=== PATIENT | male | born 1960 | race Caucasian/White ===

== ENCOUNTER 2017-08-07 10:54 | Observation (INO) | payer BC ==
[~2017-08-07] VITALS: Ht 182.9 cm; Wt 112.5 kg
--- NOTE | ~2017-08-07 | HEMODYNAMI ---
PATIENT:SHERIN GREWAL MEDICAL RECORD: [id number] : 60 [id number] ADMISSION DATE: 08/07/17 Generatedon:08/08/20178:47 Patient name: SHERIN GREWAL Patient #: [id number] SSN: : 1960 Date of study: 08/08/2017 Page: Of Hemodynamic Procedure Report Patient Data Patient Demographics Procedure consent was obtained First Name: SHERIN Gender: Male Last Name: URI : 1960 Middle Initial: JORGE Age: 56 year(s) Patient #: [id number] Race: Unknown Additional ID: [id number] Contact details [address]: [address] [place] [address] State: [place] City: [place] Zip code: [address] Past Medical History Allergies Allergen Reaction Date Comments Reported Other allergy 08/08/2017 PCN Admission Admission Data Admission Date: 08/07/2017 Admission Time: 13:10 [facility] Results Lab Result Date: 08/07/2017 Lab Result Time: 11:24 Biochemistry Name Units Result Min Max BUN mg/dl 14 --(--*-)-- 7 18 Creatinine mg/dl 1.1 --(--*-)-- 0.6 1.3 CBC Name Units Result Min Max Hematocrit % 44.2 --(*---)-- 42 54 Hemoglobin g/dl 15.6 --(--*-)-- 13.5 17.5 Procedure Procedure Types Cath Procedure Diagnostic Procedure LHC LH w/Coronaries Miscellaneous Procedures Moderate Sedation up to 30 minutes Procedure Description Procedure Date Procedure Date: 08/08/2017 Procedure Start Time: 8:30 Procedure End Time: 8:45 Procedure Staff Name Function Walker Carcamo MD Performing Physician Shannon Brandon RT Monitor Gris Velasquez RT Scrub Mery Cho RN Nurse Laurence Phoenix RN Nurse Procedure Data Cath Procedure Fluoroscopy Diagnostic fluoroscopy Total fluoroscopy Time: 1.5 time: 1.5 min min Diagnostic fluoroscopy Total fluoroscopy dose: 497 dose: 497 mGy mGy Contrast Material Contrast Material Type Amount (ml) Isovue 300 66 Entry Location Entry Primary Successful Side Size Upsize Upsize Entry Closure Succes sful Closure Location (Fr) 1 (Fr) 2 (Fr) Remarks Device Remarks Femoral Right 5 Fr Exoseal artery Estimated blood loss: 5 ml Diagnostic catheters Device Type Used For End Catheter Placement MULTIPACK JL 4.0 5Fr Left Coronary catheter Angiography MULTIPACK 3DRC 5Fr Right Coronary catheter Angiography MULTIPACK Pigtail 5 Fr LV Angiography catheter Procedure Complications No complications Procedure Medications Medication Administration Route Dosage 0.9% NaCl I.V. 100 ml/hr Lidocaine 2% added to field 20 Heparin Flush Bag added to field 2 bags (1000units/500ml NS) Oxygen NC 2 l/min Fentanyl I.V. 50 mcg Versed I.V. 1 mg Versed I.V. 1 mg Fentanyl I.V. 50 mcg Plavix P.O. 75 mg Hemodynamics Rest Heart Rate: 74 (bpm) Pressure Samples Time Site Value (mmHg) Purpose Heart Use Rate(bpm) 8:38 LV 115/-2,18 Snapshot 68 8:39 AO 107/61(81) Pullback 71 8:39 LV 118/-7,6 Pullback 71 Gradients Valve Time Site 1 Site 2 Mean SEP/DFP Peak To Heart Use (mmHg) (sec/min) Peak Rate (mmHg) (bpm) Aortic 8:39 LV AO 24 6 11 71 118/-7,6 107/61(81) Calculations Valve P-P Mean Valve Index Valve Source Name Gradient Area Flow (cm2) Aortic 11 24 11 24 Snapshots Pre Cath Intra NCS Post Cath Vital Signs Time Heart Resp SPO2 etCO2 NIBP Rhythm Pain Sedation Rate (ipm) (%) (mmHg) (mmHg) Status Level (bpm) 8:04:15 56 14 97 0 119/76(94) NSR 0 (11) 10(A) , No pain 8:08:27 58 14 97 38.1 117/75(88) NSR 0 (11) 10(A) , No pain 8:12:37 59 14 98 38.1 114/74(89) NSR 0 (11) 10(A) , No pain 8:16:51 67 14 98 42.6 119/66(89) NSR 0 (11) 10(A) , No pain 8:21:05 56 14 98 44.9 120/72(82) NSR 0 (11) 10(A) , No pain 8:25:17 57 19 97 41.1 116/68(84) NSR 0 (11) 10(A) , No pain 8:29:33 61 19 97 45.7 119/62(93) NSR 0 (11) 9(A) , No pain 8:33:45 65 16 96 44.2 119/65(97) NSR 0 (11) 9(A) , No pain 8:37:57 67 16 94 33.7 118/70(92) NSR 0 (11) 9(A) , No pain 8:42:11 68 17 95 8.9 124/66(99) NSR 0 (11) 10(A) , No pain 8:46:18 65 18 95 47.9 116/70(90) NSR 0 (11) 10(A) , No pain Medications Time Medication Route Dose Verified Delivered Reason Notes Effectiveness by by 8:03:33 0.9% NaCl I.V. 100ml/hr Walker Laurence used for Carlos Alberto Phoenix RN procedure 8:03:48 Lidocaine 2% added 20ml Walker Walker for local to vial Carlos Alberto Carcamo MD anesthetic field 8:03:58 Heparin Flush added 2 bags Walker Walker used for Bag to Carlos Alberto Carcamo MD procedure (1000units/500ml field NS) 8:04:11 Oxygen NC 2 l/min Walker Laurence Per Carlos Alberto Phoenix RN physician 8:23:26 Fentanyl I.V. 50 mcg Walker Laurence for sedation Carlos Alberto Phoenix RN 8:23:37 Versed I.V. 1 mg Walker Laurence for sedation Carlos Alberto Phoenix RN 8:29:52 Versed I.V. 1 mg Walker Laurence for sedation Carlos Alberto Phoenix RN 8:29:59 Plavix P.O. 75 mg Walker Laurence for per Carlos Alberto Phoenix RN antiplatelet carlos alberto therapy 8:29:59 Fentanyl I.V. 50 mcg Walker Laurence for sedation Carlos Alberto Phoenix RN Procedure Log Time Note 7:46:54 Diagnostic Cath Status : Elective 7:47:19 Mery Cho RN sent for patient. Start room use. 7:47:20 Time tracking: Regular hours 7:47:25 Plan of Care:Hemodynamics will remain stable., Cardiac rhythm will remain stable., Comfort level will be maintained., Respiratory function will remain adequate., Patient/ family verbilizes understanding of procedure., Procedure tolerated without complication., Recovers from procedure without complications.. 7:55:33 Patient received from Med II to CCL 2 Alert and oriented. Tansferred to table in Supine position. 7:55:34 Warm blankets applied, and shankar hugger turned on for patient comfort. 7:55:34 Correct patient and procedure confirmed by team. 7:55:36 Signed procedure consent form obtained from patient. 7:55:37 ECG and BP/O2 sat monitors applied to patient. 7:55:58 H&P Date Dictated: 08/07/2017 Within 30 days and on chart.. 7:58:18 Lab Result : BUN 14 mg/dl 7:58:18 Lab Result : Hematocrit 44.2 % 7:58:18 Lab Result : Hemoglobin 15.6 g/dl 7:58:18 Lab Result : Creatinine 1.1 mg/dl 7:59:19 Previous problem with sedation/anesthesia? No ? 7:59:20 Snore? Yes 7:59:22 Sleep apnea? No 7:59:25 Deviated septum? No 7:59:25 Opens mouth fully? Yes 7:59:27 Sticks out tongue? Yes 7:59:30 Airway obstruction? No ? 7:59:36 Dentures? Yes Partial in tight 7:59:40 Pre-procedure instructions explained to patient. 7:59:41 Pre-op teaching completed and patient verbalized understanding. 7:59:42 Family in waiting room. 7:59:43 Patient NPO since Midnight. 7:59:50 Patient allergic to Other allergyPCN 7:59:53 Is the patient allergic to Iodine/contrast media? No. 7:59:53 Is patient on blood thinner?Yes 7:59:56 ACC The patient was administered the following blood thiners within the last 24 hours: ACCPlavix 7:59:57 Patient diabetic? No. 8:00:03 Pre procedure: right dorsailis pedis pulse 2+ Normal; easily identifiable; not easily obliterated 8:00:05 Patient pain scale 0/10 ?. 8:00:27 IV patent on arrival in right hand with 0.9% NaCl at O. 8:00:31 Lab results completed and on chart. 8:00:34 Right groin area was prepped with chlora-prep and draped in sterile fashion 8:00:34 Alarms reviewed by R. N. 8:00:35 Sharps counted by scrub and verified by R.N. 8:00:37 Use device set Femoral Dx 8:00:40 Tegaderm 4 x 4 ([id number]) opened to sterile field. 8:00:42 ACIST Syringe (05945) opened to sterile field. 8:00:42 Bag Decanter (2002S) opened to sterile field. 8:00:43 Medline Cath Pack ([id number]) opened to sterile field. 8:00:43 Terumo 5Fr [place] Sheath opened to sterile field. 8:00:44 St Terence 260cm J .035 wire opened to sterile field. 8:00:47 ACIST Hand Control (48221) opened to sterile field. 8:00:48 ACIST Manifold (02742) opened to sterile field. 8:00:51 PERCUTANEOUS ENTRY 19GA needle opened to sterile field. 8:00:52 DIAGNOSTIC Multipack 5Fr catheter set (UB4968) opened to sterile field. 8:03:13 Vital chart was started 8:03:33 0.9% NaCl 100ml/hr I.V. was administered by Laurence Phoenix RN; used for procedure; 8:03:48 Lidocaine 2% 20ml vial added to field was administered by Walker Carcamo MD; for local anesthetic; 8:03:58 Heparin Flush Bag (1000units/500ml NS) 2 bags added to field was administered by Walker Carcamo MD; used for procedure; 8:04:11 Oxygen 2 l/min NC was administered by Laurence Phoenix RN; Per physician; 8:21:06 Zero performed for pressure channel P1 8:22:49 Physician arrived 8::49 --------ALL STOP TIME OUT------ 8:22:50 Final Timeout: patient, procedure, and site verified with staff and physician. All members of the team are in agreement. 8:22:52 Right groin site verified by team. 8:22:56 Physical assessment completed. ASA score P 2 - A patient with mild systemic disease as per Walker Carcamo MD. 8::59 Sedation plan: IV Moderate Sedation Medication:Versed, Fentanyl 8:23:26 Fentanyl 50 mcg I.V. was administered by Laurence Phoenix RN; for sedation; 8:23:37 Versed 1 mg I.V. was administered by Laurence Phoenix RN; for sedation; 8::52 Versed 1 mg I.V. was administered by Laurence Phoenix RN; for sedation; 8::59 Plavix 75 mg P.O. was administered by Laurence Phoenix RN; for antiplatelet therapy; per carlos alberto 8::59 Fentanyl 50 mcg I.V. was administered by Laurence Phoenix RN; for sedation; 8::28 Procedure started. 8:30:28 Full Disclosure recording started 8:30:36 Local anesthetic to right femoral artery with Lidocaine 2% by Walker Carcamo MD.INITIAL ACCESS ONLY 8:32:21 A 5 Fr sheath was inserted into the Right Femoral artery 8:32:33 A MULTIPACK JL 4.0 5Fr catheter was advanced over the wire and used for Left Coronary Angiography. 8:34:27 LCA angiography performed. 8:34:30 Injector settings: Ml/sec: 3, Volume: 6, 8:35:49 Catheter removed. 8:35:55 A MULTIPACK 3DRC 5Fr catheter was advanced over the wire and used for Right Coronary Angiography. 8:36:48 Baseline sample Acquired. 8:37:26 RCA angiography performed. 8:37:29 Injector settings: Ml/sec: 3, Volume: 6, 8:37:53 A MULTIPACK Pigtail 5 Fr catheter was advanced over the wire and used for LV Angiography. 8:39:05 LV hemodynamics recorded. 8:39:07 LV gram done using PATRICIA 8:39:10 Injector settings: Ml/sec: 5, Volume: 15, 8:39:17 EF : 55 % 8:39:34 Catheter removed. 8:42:37 EXOSEAL 5Fr (EX500) opened to sterile field. 8:42:56 Sheath removed intact; hemostasis achieved with Exoseal to the Right Femoral artery. 8:42:58 Procedure ended.(Physican Out) 8:44:46 Fluoroscopy time 01.50 minutes. 8:44:50 Fluoroscopy dose: 497 mGy 8:44:50 Flurop Dose total: 497 8:44:55 Contrast amount:Isovue 300 66ml. 8:44:56 Sharps counted by scrub and verified by R.N. 8:44:57 Insertion/operative site no bleeding no hematoma. 8:45:00 Post-op/insertion site Right Femoral artery dressed using a 4 x 4 and Tegaderm. 8:45:02 Post right femoral artery:stable 8:45:04 Post Procedure Pulses reassessed and unchanged 8:45:07 Post procedure rhythm: unchanged. 8:45:10 Estimated blood loss: 5 ml 8:45:11 Post procedure instruction explained to patient.Patient verbalizes understanding. 8:45:11 Patient needs reinforcement of post procedure teaching. 8:45:25 Procedure type changed to Cath procedure, Diagnostic procedure, LHC, LHC w/Coronaries, Miscellaneous Procedures, Moderate Sedation up to 30 minutes 8:45:27 Procedure and supply charges have been captured, reviewed, submitted and are correct. 8:45:32 Procedure Complication : No complications 8:45:34 Vital chart was stopped 8:45:34 See physician's report for complete and final results. 8:45:41 Report given to [facility] II. 8:45:44 Patient transfered to Med II with Stretcher. 8:45:46 Procedure ended. 8:45:46 Full Disclosure recording stopped 8:45:54 End room use (Document Last) Device Usage Item Name Manufacture Quantity Catalog Hospital Part Current Minimal Lot# / Number Charge Number Stock Stock Serial# Code Tegaderm 4 x 3M 1 1626W [id number] 5 4 (1626W) ACIST Acist 1 59585 533639 625655 611176 20 Syringe Medical (16566) Systems Inc Bag Decanter Microtek 1 2001S 398691 22251 379558 5 (2001S) Medical Inc. Medline Cath Cardinal 1 [id number] 274873 22306 720315 5 [facility] ([id number]) Terumo 5Fr Terumo 1 XVR280 170451 382811 401387 [address] Terence 1 263574 244152 826817 419231 30 260cm J .035 wire ACIST Hand Acist 1 36291 074706 690810 554547 5 Control Medical (69018) Systems Inc ACIST Acist 1 61148 826664 816407 988537 5 Manifold Medical (90914) Systems Inc PERCUTANEOUS Cook Medical 1 V31994 093113 617381 5 ENTRY 19GA needle DIAGNOSTIC Cardinal 1 EL7410 306532 43216 740943 30 Multipack Health 5Fr catheter set (SA0059) MULTIPACK JL Cardinal 1 933685 5 4.0 5Fr Health catheter MULTIPACK Cardinal 1 616813 5 3DRC 5Fr Health catheter MULTIPACK Cardinal 1 674698 5 Pigtail 5 Fr Health catheter EXOSEAL 5Fr Cardinal 1 EX500 250602 569843 238911 10 (EX500) Health Signature Audit [place] Stage Time Signature Unsigned Intra-Procedure 08/08/2017 Shannon Brandon 8:47:43 AM RT(R) Signatures Monitor : Shannon Brandon RT Signature : Date : Time : [place] [address] [place] [address]
--- NOTE | ~2017-08-07 | HEMODYNAMI ---
PATIENT:SHERIN GREWAL MEDICAL RECORD: [id number] : 60 [id number] ADMISSION DATE: 08/07/17 Generatedon:08/09/201711:33 Patient name: SHERIN GREWAL Patient #: [id number] SSN: : 1960 Date of study: 08/09/2017 Page: Of Hemodynamic Procedure Report Patient Data Patient Demographics Procedure consent was obtained First Name: SHERIN Gender: Male Last Name: URI : 1960 [facility] Initial: JORGE Age: 56 year(s) Patient #: [id number] Race: Unknown Additional ID: [id number] Contact details [address]: [address] [place] [address] State: [place] City: [place] Zip code: [address] Past Medical History Allergies Allergen Reaction Date Comments Reported Other allergy 08/08/2017 PCN Other allergy 08/09/2017 penicillin Admission Admission Data Admission Date: 08/07/2017 Admission Time: 13:10 Room #: D.2119 Lab Results Lab Result Date: 08/09/2017 Lab Result Time: 0:00 Biochemistry Name Units Result Min Max BUN mg/dl 14 --(--*-)-- 7 18 Creatinine mg/dl 1.1 --(--*-)-- 0.6 1.3 CBC Name Units Result Min Max Hemoglobin g/dl 15.6 --(--*-)-- 13.5 17.5 Procedure Procedure Types Cath Procedure PCI Procedure Coronary Stent Coronary Stent Initial Miscellaneous Procedures Moderate Sedation up to 45 minutes Procedure Description Procedure Date Procedure Date: 08/09/2017 Procedure Start Time: 11:16 Procedure End Time: 11:31 Procedure Staff Name Function Maurice Ramirez MD Performing Physician Shannon Brandon RT Monitor Gris Velasquez RT Scrub Mery Cho RN Nurse Laurence Phoenix RN Nurse Procedure Data Cath Procedure Fluoroscopy Diagnostic fluoroscopy Total fluoroscopy Time: 6.2 time: 6.2 min min Diagnostic fluoroscopy Total fluoroscopy dose: 851 dose: 851 mGy mGy Contrast Material Contrast Material Type Amount (ml) Isovue 300 141 Entry Location Entry Primary Successful Side Size Upsize Upsize Entry Closure Succes sful Closure Location (Fr) 1 (Fr) 2 (Fr) Remarks Device Remarks Femoral Left 6 Fr Exoseal artery Short Estimated blood loss: 5 ml Procedure Complications No complications Procedure Medications Medication Administration Route Dosage 0.9% NaCl I.V. 100 ml/hr Oxygen NC 2 l/min Lidocaine 2% added to field 20 Heparin Flush Bag added to field 2 bags (1000units/500ml NS) Plavix P.O. 75 mg Fentanyl I.V. 50 mcg Versed I.V. 2 mg Heparin Bolus I.V. 4000 units Fentanyl I.V. 50 mcg Versed I.V. 1 mg Versed I.V. 1 mg Hemodynamics Rest HGB: 15.6 (g/dl) Heart Rate: 60 (bpm) Snapshots Pre Cath Intra NCS Post Cath Vital Signs Time Heart Resp SPO2 etCO2 NIBP (mmHg) Rhythm Pain Sedation Rate (ipm) (%) (mmHg) Status Level (bpm) 10:49:01 56 16 99 38.5 127/78(92) NSR 0 (11) 10(A) , No pain 10:53:13 60 16 99 37.8 130/82(98) NSR 0 (11) 10(A) , No pain 10:57:29 53 14 99 40.8 129/79(89) NSR 0 (11) 10(A) , No pain 11:01:45 53 16 95 47.6 118/77(86) NSR 0 (11) 10(A) , No pain 11:05:55 65 16 96 48.3 127/79(89) NSR 0 (11) 10(A) , No pain 11:10:11 57 19 95 49.8 121/74(95) NSR 0 (11) 10(A) , No pain 11:14:23 67 18 96 45.3 129/80(94) NSR 0 (11) 10(A) , No pain 11:18:39 62 17 95 26.4 124/77(95) NSR 0 (11) 9(A) , No pain 11:22:52 75 17 94 49.1 125/73(95) NSR 0 (11) 9(A) , No pain 11:27:04 69 19 96 49.2 120/78(99) NSR 0 (11) 10(A) , No pain 11:31:16 68 17 96 46.1 132/81(100) NSR 0 (11) 10(A) , No pain Medications Time Medication Route Dose Verified Delivered Reason Notes Effectiveness by by 10:49:17 0.9% NaCl I.V. 100 Mauriceisai Vizcarray used for ml/hr James Phoenix RN procedure 10:49:33 Oxygen NC 2 Maurice Laurence Per physician l/min James Phoenix RN 10:49:48 Lidocaine 2% added 20ml Maurice Maurice for local to vial James Ramirez MD anesthetic field 10:49:59 Heparin Flush added 2 Maurice Maurice used for Bag to bags James Ramirez MD procedure (1000units/500ml field NS) 10:50:30 Plavix P.O. 75 mg Maurice Dang for James Phoenix RN antiplatelet therapy 11:16:57 Heparin Bolus I.V. 4000 Maurice Dang for verifi ed units James Phoenix RN anticoagulation by dr. ramirez 11:18:34 Fentanyl I.V. 50 Maurice Fontenotfany for sedation verifi ed [facility] James Phoenix RN by dr. ramirez 11:18:48 Versed I.V. 2 mg Maurice Fontenotfany for sedation verifi ed James Phoenix RN by dr. ramirez 11:20:57 Fentanyl I.V. 50 Maurice Dang for sedation [facility] James Phoenix RN 11:21:07 Versed I.V. 1 mg Maurice Fontenotfany for sedation James Phoenix RN 11:21:18 Versed I.V. 1 mg Maurice Fontenotfany for sedation James Phoenix RN Procedure Log Time Note 10:35:54 Diagnostic Cath Status : Elective 10:36:53 Mery Cho RN sent for patient. Start room use. 10:36:54 Time tracking: Regular hours 10:36:58 Plan of Care:Hemodynamics will remain stable., Cardiac rhythm will remain stable., Comfort level will be maintained., Respiratory function will remain adequate., Patient/ family verbilizes understanding of procedure., Procedure tolerated without complication., Recovers from procedure without complications.. 10:38:44 Patient received from Med II to CCL 2 Alert and oriented. Tansferred to table in Supine position. 10:39:06 Warm blankets applied, and shankar hugger turned on for patient comfort. 10:39:06 Correct patient and procedure confirmed by team. 10:39:07 Signed procedure consent form obtained from patient. 10:39:08 ECG and BP/O2 sat monitors applied to patient. 10:47:59 Baseline sample Acquired. 10:47:59 Vital chart was started 10:48:03 Rhythm: sinus rhythm 10:48:04 Full Disclosure recording started 10:48:11 H&P Date Dictated: 08/09/2017 Within 30 days and on chart.. 10:48:12 Pre-procedure instructions explained to patient. 10:48:13 Pre-op teaching completed and patient verbalized understanding. 10:48:14 Family in waiting room. 10:48:15 Patient NPO since Midnight. 10:48:26 Patient allergic to Other allergypenicillin 10:48:28 Is the patient allergic to Iodine/contrast media? No. 10:48:29 Was the patient premedicated? No 10:48:32 Is patient on blood thinner?Yes 10:48:35 ACC The patient was administered the following blood thiners within the last 24 hours: ACCPlavix 10:49:17 0.9% NaCl 100 ml/hr I.V. was administered by Laurence Phoenix RN; used for procedure; 10:49:33 Oxygen 2 l/min NC was administered by Laurence Phoenix RN; Per physician; 10:49:48 Lidocaine 2% 20ml vial added to field was administered by Maurice Ramirez MD; for local anesthetic; 10:49:59 Heparin Flush Bag (1000units/500ml NS) 2 bags added to field was administered by Maurice Ramirez MD; used for procedure; 10:50:14 Patient diabetic? No. 10:50:21 Previous problem with sedation/anesthesia? No ? 10:50:24 Snore? Yes 10:50:25 Sleep apnea? No 10:50:26 Deviated septum? No 10:50:27 Opens mouth fully? Yes 10:50:27 Sticks out tongue? Yes 10:50:30 Plavix 75 mg P.O. was administered by Laurence Phoenix RN; for antiplatelet therapy; 10:50:32 Airway obstruction? No ? 10:50:43 Dentures? Yes partials; in tight 10:50:47 Pre procedure: right dorsailis pedis pulse 2+ Normal; easily identifiable; not easily obliterated 10:50:49 Pre procedure: left dorsailis pedis pulse 2+ Normal; easily identifiable; not easily obliterated 10:50:51 Patient pain scale 0/10 ?. 10:50:56 IV patent on arrival in right hand with 0.9% NaCl at [facility]. 10:51:43 Lab Result : BUN 14 mg/dl 10:51:43 Lab Result : Creatinine 1.1 mg/dl 10:51:43 Lab Result : Hemoglobin 15.6 g/dl 10:53:36 Lab results completed and on chart. 10:53:48 Left groin area was prepped with chlora-prep and draped in sterile fashion 10:53:50 Alarms reviewed by R. N. 10:53:50 Sharps counted by scrub and verified by R.N. 10:55:59 Physician arrived 10:55:59 --------ALL STOP TIME OUT------ 10:56:00 Final Timeout: patient, procedure, and site verified with staff and physician. All members of the team are in agreement. 10:56:03 Left groin site verified by team. 10:56:06 Physical assessment completed. ASA score P 2 - A patient with mild systemic disease as per Maurice Ramirez MD. 10:56:09 Sedation plan: IV Moderate Sedation Medication:Versed, Fentanyl 10:56:32 Use device set [facility] PCI 10:56:34 INFLATOR Merit BasixCompak (EF0094) opened to sterile field. 10:56:35 SHEATH 6FR Deepwater (QYL708) opened to sterile field. 10:56:39 WHISPER 190cm wire ([id number]) opened to sterile field. 10:57:14 IV Extension Set opened to sterile field. 11:03:04 Zero performed for pressure channel P1 11:16:02 Procedure started. 11:16:13 Local anesthetic to left femerol artery with Lidocaine 2% by Maurice Ramirez MD.INITIAL ACCESS ONLY 11:16:36 A 6 Fr Short sheath was inserted into the Left Femoral artery 11:16:56 GUIDE 6FR XBLAD 4.0 catheter ([id number]) opened to sterile field. 11:16:57 Heparin Bolus 4000 units I.V. was administered by Laurence Phoenix RN; for anticoagulation; verified by dr. ramirez 11:17:05 6 Fr xblad 4 guide catheter was inserted over the wire 11:17:37 LCA angiography performed. 11:18:34 Fentanyl 50 mcg I.V. was administered by Laurence Phoenix RN; for sedation; verified by dr. ramirez 11:18:48 Versed 2 mg I.V. was administered by Laurence Phoenix RN; for sedation; verified by dr. ramirez 11:19:30 whisper wire advanced. 11:20:57 Fentanyl 50 mcg I.V. was administered by Laurence Phoenix RN; for sedation; 11:21:07 Versed 1 mg I.V. was administered by Laurence Phoenix RN; for sedation; 11:21:18 Versed 1 mg I.V. was administered by Laurence Phoenix RN; for sedation; 11:22:28 Wire advanced across lesion. 11:23:54 The INTEGRITY RX 4.0 x 12 stent ([id number]) was advanced then removed because of failure to cross lesion 11:26:45 Inflation number: 1 A EUPHORA 3.5 x 15 Balloon ([id number]) was prepped and advanced across the Prox CX, then inflated to 11 EZEQUIEL for 0:10 (min:sec). 11:26:56 Balloon removed over the wire. 11:28:55 Inflation Number: 1 A INTEGRITY RX 4.0 x 12 stent ([id number]) was prepped and advanced across the 1st Ob Karely. The stent was deployed at 11 EZEQUIEL for 0:10 (min:sec). 11:29:37 Stent catheter was removed intact over wire. 11:29:37 Wire removed. 11:29:37 Guide catheter removed. 11:29:46 Sheath removed intact; hemostasis achieved with Exoseal to the Left Femoral artery. 11:29:48 Procedure ended.(Physican Out) 11:30:43 Fluoroscopy time 06.20 minutes. 11:30:46 Flurop Dose total: 851 11:30:46 Fluoroscopy dose: 851 mGy 11:30:50 Contrast amount:Isovue 300 141ml. 11:30:52 Sharps counted by scrub and verified by R.N. 11:30:59 Post-op/insertion site Left Femoral artery dressed using a 4 x 4 and Tegaderm. 11:31:03 Post left femerol artery:stable 11:31:16 Post procedure rhythm: unchanged. 11:31:19 Estimated blood loss: 5 ml 11:31:20 Post procedure instruction explained to patient.Patient verbalizes understanding. 11:31:21 Patient needs reinforcement of post procedure teaching. 11:31:34 Procedure type changed to Cath procedure, PCI procedure, Coronary Stent, Coronary Stent Initial, Miscellaneous Procedures, Moderate Sedation up to 45 minutes 11:31:35 Procedure and supply charges have been captured, reviewed, submitted and are correct. 11:31:39 Procedure Complication : No complications 11:31:41 Vital chart was stopped 11:31:42 See physician's report for complete and final results. 11:31:47 Report given to [facility]. 11:31:50 Patient transfered to [facility] with Stretcher. 11:31:52 Procedure ended. 11:31:52 Full Disclosure recording stopped 11:31:59 ACC-PCI Only Patient was given prescriptions, or instructed by Maurice Ramirez MD to start/continue the following medications upon discharge: Plavix 11:32:01 End room use (Document Last) 11:32:37 EXOSEAL 6Fr (EX600) opened to sterile field. 11:32:59 Use device set Acist 11:33:05 ACIST Manifold (84311) opened to sterile field. 11:33:06 ACIST Hand Control (63527) opened to sterile field. 11:33:07 ACIST Syringe (75219) opened to sterile field. Intervention Summary Intervention Notes Time ActionType Lesion and Equipment Action# Pressure Duration Attributes Used 11:23:54 Discard INTEGRITY RX Stent 4.0 x 12 stent ([id number]) 11:26:45 Inflate Prox CX EUPHORA 3.5 1 11 00:10 balloon x 15 Balloon ([id number]) 11:28:55 Place stent 1st Ob Karely INTEGRITY RX 1 11 00:10 4.0 x 12 stent ([id number]) Device Usage Item Name Manufacture Quantity Catalog Hospital Part Current Minimal Lot# / Number Charge Number Stock Stock Serial# Code INFLATOR Merit 1 [id number] 628601 876171 15 [facility] BasixCompak (XJ6666) SHEATH 6FR Terumo 1 SFR560 615281 686824 732624 40 Deepwater (TKA012) WHISPER Lora 1 [id number] 873063 774059 265678 5 190cm wire Vascular ([id number]) IV Extension Hospira 1 98915-33 446195 56408 434504 5 Set GUIDE 6FR Cardinal 1 [id number] 822292 926189 954600 3 XBLAD 4.0 Health catheter ([id number]) INTEGRITY RX Medtronic 1 [id number] 870211 602369 154879 5 [id number] 4.0 x 12 stent ([id number]) EUPHORA 3.5 Medtronic 1 [id number] 632278 429847 434502 5 [id number] x 15 Balloon ([id number]) EXOSEAL 6Fr Cardinal 1 EX600 160763 273872 658737 10 (EX600) Health ACIST Acist 1 33760 847749 625320 220766 5 Manifold Medical (69673) Systems Inc ACIST Hand Acist 1 38000 771252 892698 668245 5 Control Medical (85462) Systems Inc ACIST Acist 1 04791 417652 826091 259168 20 Syringe Medical (61274) Systems Inc Signature Audit [place] Stage Time Signature Unsigned Intra-Procedure 08/09/2017 Shannon Brandon 11:33:40 AM RT(R) Signatures Monitor : Shannon Brandon RT Signature : Date : Time : [facility] [address] [place] [address]
[~2017-08-07 10:54] MED LIST: BAYER CHEWABLE81 MG PO; LIPITOR40 MG PO; PLAVIX75 MG PO; ZESTRIL40 MG PO
[2017-08-07 11:25] LABS: BASOPHILS 0.3 % (0-2); EOSINOPHILS 1.4 % (0-7); HEMATOCRIT 44.2 % (42.0-54.0); HEMOGLOBIN 15.6 g/dL (13.5-17.5); IMMATURE GRANULOCYTES 0.2 % (0-5); MCH 32.2 pg (26.0-34.0); MCHC 35.3 g/dL (31.0-37.0); MCV 91.1 fL (80.0-100.0); MEAN PLATELET VOLUME 10.1 fL (7.4-10.4); MONOCYTES 7.3 % (2-11); NEUTROPHILS 69.8 % (40-80); PLATELET COUNT 157 10x3/uL (130-400); RBC 4.85 10x6/uL (4.20-6.10); RDW 12.7 % (11.5-14.5); WBC 6.6 10x3/uL (4.8-10.8)
[2017-08-07 11:39] LABS: ALBUMIN 4.1 g/dL (3.4-5.0); ALKALINE PHOSPHATASE 56 U/L (46-116); ALT (SGPT) 47 U/L (10-68); BILIRUBIN - TOTAL 0.41 mg/dL (0.2-1.3); CALC OSMOLALITY 273 mosm/kg (275-300); CALCIUM 9.6 mg/dL (8.5-10.1); CARBON DIOXIDE 23.5 mmol/L (21.0-32.0); CHLORIDE - SERUM 102 mmol/L (98-107); CREATININE - SERUM 1.1 mg/dL (0.6-1.3); GLUCOSE 117 mg/dL (74-106); POTASSIUM - SERUM 4.1 mmol/L (3.5-5.1); PROTEIN - SERUM 7.2 g/dL (6.4-8.2); SODIUM 136 mmol/L (136-145); UREA NITROGEN 14 mg/dL (7-18); eGFR NON AFRICAN AMERICAN 73 mL/min (90-120)
[2017-08-07 11:53] LABS: CHOLESTEROL, TOTAL 129 mg/dL (0-200); CKMB 7.1 U/L (0.0-3.6); CREATINE KINASE 494 UL (21-232); HDL CHOLESTEROL 43 mg/dL (32-96); LDL CHOLESTEROL 65 mg/dL (0-100); LDL-HDL RATIO 1.5 ratio (1.5-3.5); TRIGLYCERIDE 105 mg/dL (30-200)
[2017-08-07 11:54] LABS: TROPONIN-I < 0.017 ng/mL (0.000-0.060)
--- NOTE | 2017-08-07 15:10 | NUR ---
RECIEVED FROM ER. AWAKE ALERT ORIENTED. TELEMERTY SHOWS SR. O2 AT 2 L/M PER NC. DENIES ANY NEEDS. CALL LIGHT IN REACH WITH SR UP. WILL MONITOR
--- NOTE | 2017-08-07 17:34 | NUR ---
LYING QUIETLY. DENIES ANY PAIN OR SHORTNESS OF BREATH. NPO AFTER MN FOR CATH TOMORROW
[2017-08-07 17:39] VITALS: Ht 182.9 cm; Wt 112.5 kg
--- NOTE | 2017-08-07 19:00 | NUR ---
RECEIVED REPORT AND ASSUMED PT CARE FROM DAY SHIFT NURSE @ THIS TIME.
--- NOTE | 2017-08-07 20:30 | NUR ---
INITIAL ASSESSMENT COMPLETED, VSS, AFEBRILE. RESP EVEN AND UNLABORED. O2 2LPM NC, SATS 100%. DENIES ANY C/O PAIN. NS @ 75 TO RIGHT HAND, SITE APPEARS WNL. NSR ON THE MONITOR, HR 70'S. NO NEEDS VOICED. CALL LIGHT WITHIN REACH. WILL CONT TO MONITOR.
[2017-08-07 21:01] VITALS: BP 136/73
[2017-08-08 00:52] VITALS: BP 144/73
--- NOTE | 2017-08-08 02:18 | NUR ---
PT RESTING SOUNDLY WITHOUT C/O OR DISTRESS NOTED. CALL LIGHT WITHIN REACH. DENIES ANY C/O PAIN. WILL CONT TO MONITOR.
[2017-08-08 05:36] VITALS: BP 122/77
--- NOTE | 2017-08-08 07:15 | NUR ---
PRE-OPS GIVEN. TO LAUNDRY OPERATOR BY BED.
--- NOTE | 2017-08-08 09:00 | NUR ---
BACK FROM CATH L;AB. VS WNL. RIGHT GROIN STABLE WITHOUT BLEEDING OR HEMATOMA NOTED. WILL MONITOR.
--- NOTE | 2017-08-08 11:00 | NUR ---
BED REST UP WITHOUT BLEEDING OR HEMATOMA NOTED. WILL MONITOR.
[2017-08-08 13:41] VITALS: BP 102/50
[2017-08-08 17:42] VITALS: BP 114/50
[2017-08-08 20:53] VITALS: BP 129/74
[2017-08-09 00:37] VITALS: BP 101/56
[2017-08-09 04:20] VITALS: BP 109/61
[2017-08-09 07:43] VITALS: BP 140/86
--- NOTE | 2017-08-09 10:34 | NUR ---
PRE-OPS GIVEN. TO MEDIA MONITOR BY BED.
--- NOTE | 2017-08-09 11:53 | NUR ---
BACK FROM PERSONAL BANKING REPRESENTATIVE. VS WNL. LEFT GROIN STABLE WITHOUT BLEEDING OR HEMATOMA NOTED. WILL MONITOR.
--- NOTE | 2017-08-09 16:19 | NUR ---
BED REST UP. IV AND TELEMETRY DCD. DC PLANS GIVEN. UNDERSTANDING VOICED. ESCORTED TO CAR BY W/C.
--- NOTE | 2017-08-16 12:15 | DS ---
PATIENT:SHERIN GREWAL :60 MEDICAL RECORD: [id number] DISCHARGE SUMMARY ADMISSION DATE: 08/07/17 DISCHARGE DATE: 08/09/17 DISCHARGE DIAGNOSES: 1. Angina. 2. Coronary artery disease. 3. Percutaneous transluminal coronary angioplasty stent of the left circumflex this admission. HOSPITAL COURSE: This is a gentleman with a past history of coronary artery disease, previous multivessel PTCA stent, who presents with anginal symptomatology and found to have significant disease to the left circumflex, underwent successful PTCA stent of the left circumflex. He had an uneventful postop course. He was discharged home with the addition of aspirin and Plavix to his medical regimen. Follow up with [facility] in 1 month. TRANSINT:[id number] Voice Confirmation ID: [id number] DOCUMENT ID: [id number] MONIQUE VILLATORO MD at 1215 CC: [id number] DICTATION DATE: 08/09/17 1133 MANAGER MBA: 08/09/17 1545 DIS IN 08/09/17 [id number] [place] [address]
--- NOTE | 2017-08-16 12:17 | OP ---
PATIENT NAME: SHERIN GREWAL MEDICAL RECORD: [id number] :60 LOCATION:D.M2 D.2119 ADMISSION DATE:08/07/17 SURGEON: MONIQUE VILLATORO MD DATE OF OPERATION: 08/09/2017 PROCEDURES: 1. PTCA stent left circumflex. 2. Selective coronary angiography. INDICATION: Angina and coronary artery disease. PROCEDURE IN DETAIL: After informed consent was obtained and after a detailed explanation of the risks, benefits as well as alternative therapies, the patient elected to proceed with angiogram and angioplasty. The left femoral area was prepped and draped in normal sterile fashion. Left femoral artery was cannulated via modified Seldinger technique with placement of 6-Finnish sheath. All catheters exchanged through this sheath. FINDINGS: The left circumflex has a 70+ percent stenosis in the mid vessel. This was addressed with a 4.0 x 12 mm Integrity stent. Result was 0% residual stenosis. OVERALL IMPRESSION: Successful percutaneous transluminal coronary angioplasty stent of the left circumflex going from 70+ percent initial stenosis to 0% residual. TRANSINT:[id number] Voice Confirmation ID: [id number] DOCUMENT ID: [id number] MONIQUE VILLATORO MD at 1217 CC: [id number] DICTATION DATE: 08/09/17 1134 STEEL CHIPPER: 08/09/17 1212 DIS IN 08/09/17 [address] [place] [address]
== END 2017-08-09 16:20 | disposition home or self-care (01) ==
LOC: D.ER 10:54 → D.M2 13:10 → OBSVTIME 13:10 → D.M2 08-09 16:20
PROVIDERS: Emergency Medicine; ADMIT Internal Medicine Cardiovascular Disease
DX: I25.110 Atherosclerotic heart disease of native coronary artery with unstable angina pectoris (principal); I10 Essential (primary) hypertension; E78.5 Hyperlipidemia, unspecified